=== PATIENT | male | born 1995 | race Caucasian/White ===

== ENCOUNTER 2017-05-18 05:48 | Inpatient (IN) | payer OTHER ==
[~2017-05-18] VITALS: Ht 177.8 cm; Wt 164.3 kg
--- NOTE | ~2017-05-18 | HP ---
PATIENT'S NAME: JAY MCCORD [facility] AGE: 22 Y [address] ROOM: [address] [address] LOCATION: [facility] ADMIT DATE: 05/18/2017 History & Physical DISCHARGE DATE: FAMILY PHYSICIAN: Linwood Mcnamara DO ATTENDING PHYSICIAN: Suleiman Mullins DATE OF SERVICE: REASON FOR ADMISSION: Hypoxic respiratory failure. HISTORY OF PRESENTING ILLNESS: This is a 22-year-old male with history of morbid obesity, who was admitted electively today for tonsillectomy and UPPP. After surgery, the patient has been noted to desaturate when falling asleep. Apparently, this has been an ongoing problem. The father has woken him up more than one time at night because he stops breathing. He went clearly apneic on witnessed by the nursing staff. The patient was given 75 of fentanyl, but he continues to be very sleepy and very tired. He continued to saturate. The patient denied any chest pain, pleurisy, hemoptysis. He has been told that he has high blood pressure more and more than one incident most recently at the clinic. The patient denied any recent admission to the hospital. He does not take any medications at home. Currently, he denies any chest pain, fever, nausea, vomiting, abdominal pain. PAST MEDICAL HISTORY: None. PAST SURGICAL HISTORY: None. SOCIAL HISTORY: There is no history of alcohol, tobacco, or drug abuse. FAMILY HISTORY: The grandparent has asthma and hypertension. Both his grandparents from his mother's side have hypertension. His dad had asthma, but is well controlled. Otherwise unremarkable. REVIEW OF SYSTEMS: A 10-point review of system was done otherwise unremarkable other than mentioned in the history of presenting illness. PATIENT'S NAME: JAY MCCORD [facility] AGE: 22 Y [address] ROOM: [address] [address] LOCATION: [facility] ADMIT DATE: 05/18/2017 History & Physical DISCHARGE DATE: FAMILY PHYSICIAN: Linwood Mcnamara DO ATTENDING PHYSICIAN: Suleiman Mullins MEDICATIONS: He does not take any home medications. ALLERGIES: HE IS ALLERGIC TO HALDOL AND SULFA DRUGS WHICH HE HAS HIVES. PHYSICAL EXAMINATION: GENERAL: Upon initial evaluation, the patient is lying in bed, comfortable, does not appear in acute distress. Answering question appropriately. VITAL SIGNS: Blood pressure is 137/64, heart rate of 85, respiratory rate of 15, and SpO2 was 98%, but he was on BiPAP. HEENT: Eyes are nonicteric. Pupils equal and reactive to light and accommodation. HEENT: Normocephalic, atraumatic. Mallampati score is 4. NECK: Supple. No lymphadenopathy. No jugular venous distention. LUNGS: Good bilateral air entry. No rales or rhonchi. HEART: S1, S2. No murmurs, rubs, or gallops appreciated. ABDOMEN: Soft, nontender. No palpable organs. Positive bowel sounds. EXTREMITIES: There is no edema, clubbing, or cyanosis. LABORATORY DATA: Currently pending. IMPRESSION: 1. Nighttime hypoxemia secondary to possible severe obstructive sleep apnea. 2. This problem is aggravated by sedation and pain control. RECOMMENDATIONS: 1. At the current point, we will admit the patient for observation. We will initiate CPAP at night. 2. I would continue to monitor the patient's SpO2. 3. The patient will require home sleep study upon going home. 4. He will require CPAP titration. Thank you for allowing me to participate in care of this patient. We will continue followup. MD BLANCA SCHMIDT/modl PATIENT'S NAME: JAY MCCORD [facility] AGE: 22 Y [address] ROOM: [address] [place] [address] LOCATION: [facility] ADMIT DATE: 05/18/2017 History & Physical DISCHARGE DATE: FAMILY PHYSICIAN: Linwood Mcnamara DO ATTENDING PHYSICIAN: Suleiman Mullins /[id number] D: T: HISTORY & PHYSICAL
--- NOTE | ~2017-05-18 | OR ---
PATIENT'S NAME: JAY KRMAER [facility] AGE: 22 Y [address] ROOM: [address] [address] LOCATION: GICU ADMIT DATE: 05/18/2017 OR/Procedure Report DISCHARGE DATE: FAMILY PHYSICIAN: Linwood Mcnamara DO ATTENDING PHYSICIAN: Chandrakant Maldonado SURGEON: Chandrakant Maldonado MD SIDE SEAM TENDER: DATE OF PROCEDURE: 05/18/2017 PREOPERATIVE DIAGNOSIS: Obstructive sleep apnea with tonsillar and uvular and soft palate hypertrophy. POSTOPERATIVE DIAGNOSIS: Obstructive sleep apnea with tonsillar and uvular and soft palate hypertrophy. ANESTHESIA: General. SURGERY: Tonsillectomy, uvulopalatopharyngoplasty. HISTORY: Jay Kramer is a 22-year-old gentleman, who has noted increasing difficulty with obstructive breathing pattern at night. Although he did not have a formal sleep study, the patient had symptoms and exam consistent with the above. The operative indications, potential risks, complications, and options were discussed with the patient, and he wished to proceed with surgery. DESCRIPTION OF PROCEDURE: The patient was brought to the operating room, placed in supine position, and underwent general anesthesia without significant incident. He did have desaturation quite quickly with manipulation of the endotracheal tube and placement of the César-Duc mouth gag. He did respond nicely to oxygen and also remained in hemodynamically stable condition. The César-Duc mouth gag was then placed and the patient did not have any significant adenoid tissue. He had evidence of a tonsillar and uvular and soft palate hypertrophy. Tonsils were removed using the Bovie technique, bleeding was minimal. The uvula and soft palate region were injected with 0.5 mL of 1% lidocaine with 1:100,000 epinephrine. Uvula and stump of the soft palate were removed and sutured closed with interrupted 3-0 chromic suture. Blood loss was minimal. The patient tolerated the procedure well. He was monitored very closely prior to extubation. He was transferred out of the operating room after extubation in stable condition. CHANDRAKANT MALDONADO MD PATIENT'S NAME: JAY KRAMER [facility] AGE: 22 Y [address] ROOM: [address] [place], [place] [address] LOCATION: GICU ADMIT DATE: 05/18/2017 OR/Procedure Report DISCHARGE DATE: FAMILY PHYSICIAN: Linwood Mcnamara DO ATTENDING PHYSICIAN: Chandrakant Maldonado/john /[id number] d: 05/18/17923 t: 05/22/17 1549, OPERATIVE SUMMARY
[~2017-05-18 05:48] MED LIST: FLONASE 50 MCG/16 GM NOSE; ZYRTEC10 MG PO
[2017-05-19] MEDS ORDERED: TYLENOL LI160 MG/5 M PO (14:30)
== END 2017-05-19 15:10 | disposition disaster alternative care site (69) | DRG 133 ==
LOC: GSDC 05:48 → GMSU 05:48 → GICU 05:48 → GMSU 05:49 → GSDC 05:50 → GICU 05:50 → GPOC 07:00 → GICU 05-19 10:00
PROVIDERS: ADMIT Otolaryngology
PROC: 0CBNXZZ Excision of Uvula, External Approach (ICD-10-PCS; principal; 2017-05-18)
PROC: 0CB3XZZ Excision of Soft Palate, External Approach (ICD-10-PCS; principal; 2017-05-18)
PROC: 0CTPXZZ Resection of Tonsils, External Approach (ICD-10-PCS; principal; 2017-05-18)
DX: G47.33 Obstructive sleep apnea (adult) (pediatric) (principal); Z68.43 Body mass index [BMI] 50.0-59.9, adult; G47.36 Sleep related hypoventilation in conditions classified elsewhere; J35.1 Hypertrophy of tonsils; K13.79 Other lesions of oral mucosa; E66.01 Morbid (severe) obesity due to excess calories; J30.2 Other seasonal allergic rhinitis; R03.0 Elevated blood-pressure reading, without diagnosis of hypertension; Z88.2 Allergy status to sulfonamides; R60.9 Edema, unspecified; G47.37 Central sleep apnea in conditions classified elsewhere
CPT/HCPCS: J0131; J1100; J1885; J1940; J2001; J2310; J2405; J7030; J7040; J7120